=== PATIENT | female | born 1945 | race Caucasian/White ===

== ENCOUNTER 2021-07-02 19:32 | Inpatient (IN) | payer MEDICARE, BC ==
[2021-07-02] MEDS ORDERED: Morphine 4 MG/ML VIAL ONE (20:16)
[2021-07-02] MEDS ORDERED: Ondansetron PF 4 MG/2 ML Vial ONE ×2 (20:16→23:27)
[2021-07-02 20:43] LABS: #Basophils 0.1 10x3/uL (0.0-0.2); #Monocytes 0.6 10x3/uL (0.0-1.1); #Neutrophils 10.9 10x3/uL (1.5-8.4); %Basophils 0.4 % (0.0-2.0); %Eosinophils 0.1 % (0.0-6.0); %Lymphocytes 5.5 % (18.0-47.0); %Monocytes 5.2 % (0.0-10.0); %Neutrophils 88.4 % (40.0-75.0); Hemoglobin 12.2 g/dL (13.5-17.5); Mean Corpuscular HGB CONC 31.8 g/dL (32.0-36.0); Mean Corpuscular Volume 91.4 fl (81.2-95.1); Mean Platelet Volume 9.9 fl (7.4-10.4); Platelet Count 378 10x3/uL (150-450); RBC Distribution Width 14.3 % (11.5-14.5); White Blood Cell (WBC) Count 12.3 10x3/uL (3.5-10.5)
[2021-07-02 21:01] LABS: ALT (SGPT) 15 U/L (8-55); AST (SGOT) 45 U/L (5-34); Albumin 4.5 g/dL (3.4-4.8); Alkaline Phosphatase 129 U/L (40-110); Anion Gap 19 mmol/L (10-20); BUN (Urea Nitrogen) 37 mg/dL (8.4-25.7); Bilirubin, Total 0.4 mg/dL (0.2-1.2); CK (CPK) 54 U/L (30-200); Calc. Creatinine Clearance 0 mL/min (70-130); Calcium 9.8 mg/dL (7.8-10.44); Carbon Dioxide 21 mmol/L (23-31); Chloride 104 mmol/L (98-107); Globulin 2.9 g/dL (2.4-3.5); Glucose 170 mg/dL (83-110); Lipase 36 U/L (8-78); Potassium 3.9 mmol/L (3.5-5.1); Protein, Total 7.4 g/dL (5.8-8.1); Sodium 140 mmol/L (136-145)
[2021-07-02 21:23] LABS: Bilirubin Neg (Negative); Blood, Urine 150 (Negative); Clarity Clear (Clear); Glucose, Urine (Dipstick) Normal (Negative); Ketone, Urine Negative (Negative); Leukocyte 100 (Negative); Nitrite Negative (Negative); Protein, Urine (Dipstick) 30 mg/dl (Neg-Trace); Urobilinogen Normal mg/dL (Less than 2); pH, Urine 6.5 (5.0-9.0)
[2021-07-02 21:24] LABS: CKMB 8.1 ng/mL (0-6.6)
[2021-07-02 21:32] LABS: Squamous Epithelial 0-3 HPF (0-3)
[2021-07-02 21:33] LABS: Bacteria/HPF Rare-Few HPF (None Seen)
[2021-07-02] MEDS ORDERED: Labetalol HCl 100 MG/20 ML VIAL ONE (23:14)
[2021-07-03 00:46] LABS: SARS-CoV-2 NAA Rapid Test Not Detected (NotDetected)
[2021-07-03 03:05] VITALS: BMI 18.8
[2021-07-03] MEDS ORDERED: Ondansetron PF 4 MG/2 ML Vial IVP PRN (04:05)
[2021-07-03 04:48] LABS: #Monocytes 0.9 10x3/uL (0.0-1.1); #Neutrophils 13.9 10x3/uL (1.5-8.4); %Basophils 0.1 % (0.0-2.0); %Lymphocytes 4.1 % (18.0-47.0); %Monocytes 5.7 % (0.0-10.0); %Neutrophils 89.7 % (40.0-75.0); Hemoglobin 12.3 g/dL (13.5-17.5); Mean Corpuscular HGB CONC 32.3 g/dL (32.0-36.0); Mean Corpuscular Hemoglobin 29.2 pg (27.0-33.0); Mean Corpuscular Volume 90.5 fl (81.2-95.1); Platelet Count 299 10x3/uL (150-450); RBC Distribution Width 14.6 % (11.5-14.5); Red Blood Cell (RBC) Count 4.21 10x6/uL (4.32-5.72); White Blood Cell (WBC) Count 15.5 10x3/uL (3.5-10.5)
[2021-07-03] MEDS: Sodium Chloride 0.9% 1,000 ML IV SCH ×2 (04:53→14:31)
[2021-07-03 05:12] LABS: Anion Gap 19 mmol/L (10-20); BUN (Urea Nitrogen) 31 mg/dL (8.4-25.7); Calc. Creatinine Clearance 51 mL/min (70-130); Calcium 9.6 mg/dL (7.8-10.44); Carbon Dioxide 20 mmol/L (23-31); Chloride 107 mmol/L (98-107); Glucose 119 mg/dL (83-110); Magnesium 1.6 mg/dL (1.6-2.6); Potassium 4.3 mmol/L (3.5-5.1); Sodium 142 mmol/L (136-145)
[2021-07-03 05:17] LABS: Troponin I 0.153 ng/mL (< 0.028)
[2021-07-03] MEDS: Aztreonam 1 GM in Sodium Chloride 0.9% 100 ML IVPB SCH ×3 (05:26→21:05)
[2021-07-03] MEDS: Morphine 4 MG/ML VIAL SLOW IVP PRN ×3 (05:59→21:00)
[2021-07-03] MEDS ORDERED: AZTREONAM IVPB SCH (06:00)
[2021-07-03] MEDS ORDERED: Pantoprazole 40 MG VIAL ONE (09:31)
[2021-07-03] MEDS ORDERED: Ondansetron PF 4 MG/2 ML Vial ONE (09:32)
[2021-07-03 11:15] LABS: CKMB 6.7 ng/mL (0-6.6)
[2021-07-03] MEDS: Hydrocortisone Sod Succ/PF 100 mg/2 ml Vial IVP SCH (12:01)
[2021-07-03] MEDS: Pantoprazole 40 MG VIAL IVP SCH (12:01)
[2021-07-03] MEDS ORDERED: Iopamidol-M 300 61% 15 ML VIAL ONE (12:02)
[2021-07-03] MEDS: Hydroxychloroquine Sulfate 200 MG TAB PO SCH (12:10)
[2021-07-03] MEDS: Gemfibrozil 600 MG TAB PO SCH ×2 (12:13→17:54)
[2021-07-03] MEDS: Enoxaparin Sodium 30 MG/0.3 ML SYRINGE SC SCH (12:13)
[2021-07-03] MEDS: predniSONE 5 MG TAB PO SCH (12:13)
[2021-07-03] MEDS ORDERED: Hyoscyamine Sulfate SL 0.125 mg Tablet PO PRN (17:26)
[2021-07-03 19:52] LABS: CKMB 7.2 ng/mL (0-6.6)
[2021-07-03] MEDS: ALPRAZolam 0.5 MG TAB PO SCH ×2 (21:00→21:07)
[2021-07-04] MEDS: Acetaminophen/Codeine 30-300mg Tablet PO PRN ×3 (00:20→19:31)
[2021-07-04] MEDS: Aztreonam 1 GM in Sodium Chloride 0.9% 100 ML IVPB SCH ×3 (06:01→21:03)
[2021-07-04] MEDS: Sodium Chloride 0.9% 1,000 ML IV SCH ×2 (06:02→17:53)
[2021-07-04] MEDS: Gemfibrozil 600 MG TAB PO SCH ×2 (06:53→17:52)
[2021-07-04] MEDS: predniSONE 5 MG TAB PO SCH (09:30)
[2021-07-04] MEDS: Tamsulosin HCl 0.4 MG CAP PO SCH (09:30)
[2021-07-04] MEDS: Hydroxychloroquine Sulfate 200 MG TAB PO SCH (09:30)
[2021-07-04] MEDS: Hydrocortisone Sod Succ/PF 100 mg/2 ml Vial IVP SCH ×2 (09:32→09:51)
[2021-07-04] MEDS: Pantoprazole 40 MG VIAL IVP SCH (09:33)
[2021-07-04] MEDS: Enoxaparin Sodium 30 MG/0.3 ML SYRINGE SC SCH ×2 (09:33→09:42)
[2021-07-04 10:21] LABS: #Basophils 0.1 10x3/uL (0.0-0.2); #Monocytes 0.6 10x3/uL (0.0-1.1); #Neutrophils 8.9 10x3/uL (1.5-8.4); %Basophils 0.5 % (0.0-2.0); %Eosinophils 0.1 % (0.0-6.0); %Lymphocytes 5.9 % (18.0-47.0); %Monocytes 5.5 % (0.0-10.0); %Neutrophils 87.7 % (40.0-75.0); Mean Corpuscular Hemoglobin 29.4 pg (27.0-33.0); Mean Platelet Volume 10.2 fl (7.4-10.4); Platelet Count 208 10x3/uL (150-450); White Blood Cell (WBC) Count 10.2 10x3/uL (3.5-10.5)
[2021-07-04 10:31] LABS: Anion Gap 13 mmol/L (10-20); BUN (Urea Nitrogen) 17 mg/dL (9.8-20.1); Calc. Creatinine Clearance 52 mL/min (70-130); Calcium 7.8 mg/dL (7.8-10.44); Carbon Dioxide 18 mmol/L (23-31); Chloride 112 mmol/L (98-107); Glucose 164 mg/dL (83-110); Potassium 3.5 mmol/L (3.5-5.1); Sodium 139 mmol/L (136-145)
[2021-07-04] MEDS: ALPRAZolam 0.5 MG TAB PO SCH (21:38)
[2021-07-05] MEDS: Acetaminophen/Codeine 30-300mg Tablet PO PRN (03:04)
[2021-07-05] MEDS: Sodium Chloride 0.9% 1,000 ML IV SCH ×2 (03:33→10:40)
[2021-07-05] MEDS: Aztreonam 1 GM in Sodium Chloride 0.9% 100 ML IVPB SCH ×2 (05:51→15:17)
[2021-07-05] MEDS: Gemfibrozil 600 MG TAB PO SCH (05:53)
[2021-07-05 06:25] LABS: Anion Gap 11 mmol/L (10-20); BUN (Urea Nitrogen) 14 mg/dL (9.8-20.1); Calc. Creatinine Clearance 65 mL/min (70-130); Calcium 8.1 mg/dL (7.8-10.44); Carbon Dioxide 17 mmol/L (23-31); Chloride 118 mmol/L (98-107); Glucose 92 mg/dL (83-110); Sodium 142 mmol/L (136-145)
[2021-07-05 06:42] LABS: #Eosinphils 0.1 10x3/uL (0.0-0.5); #Monocytes 0.6 10x3/uL (0.0-1.1); #Neutrophils 5.6 10x3/uL (1.5-8.4); %Basophils 0.3 % (0.0-2.0); %Eosinophils 1.6 % (0.0-6.0); %Lymphocytes 9.7 % (18.0-47.0); %Monocytes 8.1 % (0.0-10.0); %Neutrophils 79.9 % (40.0-75.0); Hemoglobin 8.9 g/dL (12.0-15.5); Mean Corpuscular HGB CONC 31.1 g/dL (32.0-36.0); Mean Corpuscular Hemoglobin 29.6 pg (27.0-33.0); Mean Platelet Volume 10.9 fl (7.4-10.4); Platelet Count 161 10x3/uL (150-450); RBC Distribution Width 14.9 % (11.5-14.5); Red Blood Cell (RBC) Count 3.01 10x6/uL (3.90-5.03)
[2021-07-05 06:46] LABS: Platelet Morphology Comment PLT clumps seen-ADEQ; RBC Morphology Normal
[2021-07-05] MEDS ORDERED: Acetaminophen 325 MG TAB PO PRN (08:05)
[2021-07-05] MEDS: Hydroxychloroquine Sulfate 200 MG TAB PO SCH (10:14)
[2021-07-05] MEDS: predniSONE 5 MG TAB PO SCH (10:14)
[2021-07-05] MEDS: Hydrocortisone Sod Succ/PF 100 mg/2 ml Vial IVP SCH (10:15)
[2021-07-05] MEDS: Pantoprazole 40 MG VIAL IVP SCH (10:15)
[2021-07-05] MEDS: Tamsulosin HCl 0.4 MG CAP PO SCH (10:15)
[2021-07-05] MEDS: Enoxaparin Sodium 30 MG/0.3 ML SYRINGE SC SCH (10:16)
[2021-07-05] MEDS: Morphine 4 MG/ML VIAL SLOW IVP PRN (10:24)
[2021-07-05 12:25] VITALS: BP 108/51; TEMP 98.1
== END 2021-07-05 13:50 | disposition home or self-care (01) | DRG 854 ==
LOC: CSHERS 19:32 → INTOOBSV 07-03 02:59 → EDSEX 07-03 02:59 → CSHTELE 07-03 02:59 → OBSVTOIN 07-03 08:55
PROVIDERS: ADMIT Family Medicine; ATTEND Internal Medicine
PROC: 0T778DZ Dilation of Left Ureter with Intraluminal Device, Via Natural or Artificial Opening Endoscopic (ICD-10-PCS; principal; 2021-07-03)
PROC: BT1F1ZZ Fluoroscopy of Left Kidney, Ureter and Bladder using Low Osmolar Contrast (ICD-10-PCS; 2021-07-03)
DX: A41.50 Gram-negative sepsis, unspecified (principal); N13.6 Pyonephrosis; D84.821 Immunodeficiency due to drugs; M06.9 Rheumatoid arthritis, unspecified; M19.90 Unspecified osteoarthritis, unspecified site; I16.0 Hypertensive urgency; K27.9 Peptic ulcer, site unspecified, unspecified as acute or chronic, without hemorrhage or perforation; F41.9 Anxiety disorder, unspecified; Z20.822 Contact with and (suspected) exposure to COVID-19; R77.8 Other specified abnormalities of plasma proteins; Z88.1 Allergy status to other antibiotic agents; Z79.899 Other long term (current) drug therapy; Z98.890 Other specified postprocedural states
CPT/HCPCS: 36415; 36416; 51600; 51701; 74177; 74430; 76000; 80048; 80053; 81003; 81015; 82550; 82553; 83605; 83690; 83735; 84484; 85025; 86140; 87086; 93005; 93010; 96374; 96375; 96376; C2625; C9113; G0378; J1650; J1720; J2270; J2405; J3490; J7050; J7512; Q9967; U0002

== ENCOUNTER 2021-08-21 15:22 | Observation (INO) | payer MEDICARE, BC ==
[2021-08-21 17:03] LABS: Bilirubin Neg (Negative); Blood, Urine Negative (Negative); Clarity Clear (Clear); Glucose, Urine (Dipstick) Normal (Negative); Ketone, Urine Negative (Negative); Leukocyte Negative (Negative); Nitrite Negative (Negative); Protein, Urine (Dipstick) 15 mg/dl (Neg-Trace); Specific Gravity, Urine 1.005 (1.002-1.036); Urobilinogen Normal mg/dL (Less than 2)
[2021-08-21 17:10] LABS: Amphetamine Not Detected (NotDetected); Barbiturates Screen Not Detected (NotDetected); Benzodiazepine Screen Detected (NotDetected); Cocaine Metabolite Screen Not Detected (NotDetected); Methadone Not Detected (NotDetected); Methamphetamine Not Detected (NotDetected); Opiate Screen Not Detected (NotDetected); Oxycodone Screen Not Detected (NotDetected); Phencyclidine (PCP) Not Detected (NotDetected); THC/Cannabinoid Screen Not Detected (NotDetected); Tricyclic Screen Detected (NotDetected)
[2021-08-21 17:30] LABS: SARS-CoV-2 NAA Rapid Test Not Detected (NotDetected)
[2021-08-21] MEDS ORDERED: Acetaminophen/Codeine 30-300mg Tablet ONE (18:11)
[2021-08-21 18:21] LABS: #Monocytes 0.4 10x3/uL (0.0-1.1); #Neutrophils 7.5 10x3/uL (1.5-8.4); %Basophils 0.2 % (0.0-2.0); %Eosinophils 0.1 % (0.0-6.0); %Lymphocytes 11.8 % (18.0-47.0); %Neutrophils 82.9 % (40.0-75.0); Hemoglobin 9.2 g/dL (12.0-15.5); Mean Corpuscular HGB CONC 31.2 g/dL (32.0-36.0); Mean Corpuscular Hemoglobin 29.2 pg (27.0-33.0); Mean Corpuscular Volume 93.7 fl (81.6-98.3); Mean Platelet Volume 9.4 fl (7.4-10.4); Platelet Count 667 10x3/uL (150-450); RBC Distribution Width 17.6 % (11.5-14.5); Red Blood Cell (RBC) Count 3.15 10x6/uL (3.90-5.03); White Blood Cell (WBC) Count 9.1 10x3/uL (3.5-10.5)
[2021-08-21 18:34] LABS: Alcohol Less than 10 mg/dL (Less than 10); CK (CPK) 26 U/L (29-168); Salicylate Less than 8.0 mg/dL (15.0-30.0)
[2021-08-21 18:35] LABS: ALT (SGPT) 25 U/L (8-55); AST (SGOT) 76 U/L (5-34); Albumin 3.3 g/dL (3.4-4.8); Alkaline Phosphatase 155 U/L (40-110); Anion Gap 18 mmol/L (10-20); BUN (Urea Nitrogen) 27 mg/dL (9.8-20.1); Bilirubin, Total 0.5 mg/dL (0.2-1.2); Calc. Creatinine Clearance 0 mL/min (70-130); Calcium 10.1 mg/dL (7.8-10.44); Carbon Dioxide 18 mmol/L (23-31); Chloride 109 mmol/L (98-107); Globulin 3.4 g/dL (2.4-3.5); Glucose 95 mg/dL (83-110); Magnesium 1.8 mg/dL (1.6-2.6); Potassium 3.8 mmol/L (3.5-5.1); Protein, Total 6.7 g/dL (5.8-8.1); Sodium 141 mmol/L (136-145)
[2021-08-21] MEDS ORDERED: Acetaminophen 325 MG TAB PO PRN (21:31)
[2021-08-21] MEDS ORDERED: ALPRAZolam 0.5 MG TAB PO PRN (21:35)
[2021-08-21 22:08] VITALS: BMI 16.9
[2021-08-21 22:37] LABS: Magnesium 1.8 mg/dL (1.6-2.6)
[2021-08-21] MEDS: Sodium Chloride 0.9% 1,000 ML IV SCH (23:10)
[2021-08-22] MEDS: HYDROcodone/Acetaminophen 5/325 mg Tablet PO PRN ×2 (01:02→10:13)
[2021-08-22 04:36] LABS: Anion Gap 16 mmol/L (10-20); BUN (Urea Nitrogen) 22 mg/dL (9.8-20.1); Calc. Creatinine Clearance 41 mL/min (70-130); Carbon Dioxide 17 mmol/L (23-31); Chloride 110 mmol/L (98-107); Glucose 84 mg/dL (83-110); Sodium 139 mmol/L (136-145)
[2021-08-22 05:01] LABS: #Eosinphils 0.1 10x3/uL (0.0-0.5); #Monocytes 0.3 10x3/uL (0.0-1.1); #Neutrophils 5.8 10x3/uL (1.5-8.4); %Basophils 0.4 % (0.0-2.0); %Eosinophils 0.8 % (0.0-6.0); %Lymphocytes 17.8 % (18.0-47.0); %Monocytes 4.4 % (0.0-10.0); %Neutrophils 75.4 % (40.0-75.0); Hemoglobin 8.9 g/dL (12.0-15.5); Mean Corpuscular HGB CONC 33.2 g/dL (32.0-36.0); Mean Corpuscular Hemoglobin 29.9 pg (27.0-33.0); Mean Corpuscular Volume 89.9 fl (81.6-98.3); Mean Platelet Volume 9.9 fl (7.4-10.4); Platelet Count 554 10x3/uL (150-450); RBC Distribution Width 17.7 % (11.5-14.5); Red Blood Cell (RBC) Count 2.98 10x6/uL (3.90-5.03); White Blood Cell (WBC) Count 7.7 10x3/uL (3.5-10.5)
[2021-08-22] MEDS ORDERED: predniSONE 5 MG TAB PO SCH (09:00)
[2021-08-22] MEDS ORDERED: Hydroxychloroquine Sulfate 200 MG TAB PO SCH (09:00)
[2021-08-22] MEDS ORDERED: Polyethylene Glycol 3350 17 GM Packet PO SCH (09:00)
[2021-08-22] MEDS ORDERED: Aspirin Chewable 81 MG TAB PO SCH (09:00)
[2021-08-22] MEDS ORDERED: Multivit, Therapeutic 1 TAB PO SCH (09:00)
[2021-08-22] MEDS ORDERED: Enoxaparin Sodium 30 MG/0.3 ML SYRINGE SC SCH (09:00)
[2021-08-22] MEDS ORDERED: Calcium Carbonate 600 MG + Vit D TAB PO SCH (09:00)
[2021-08-22 13:18] VITALS: TEMP 97.9
[2021-08-22] MEDS: Sodium Chloride 0.9% 1,000 ML IV SCH (16:09)
[2021-08-22 16:17] VITALS: BP 122/60
== END 2021-08-22 16:25 | disposition home or self-care (01) ==
LOC: CSHERS 15:22 → CSHTELE 21:33
PROVIDERS: ADMIT Family Medicine; ATTEND Internal Medicine
DX: R53.2 Functional quadriplegia (principal); S32.000A Wedge compression fracture of unspecified lumbar vertebra, initial encounter for closed fracture; R62.7 Adult failure to thrive; M06.9 Rheumatoid arthritis, unspecified; Z79.899 Other long term (current) drug therapy; Z79.82 Long term (current) use of aspirin; D63.8 Anemia in other chronic diseases classified elsewhere; Z20.822 Contact with and (suspected) exposure to COVID-19
CPT/HCPCS: 51701; 70450; 70496; 70498; 71045; 80048; 80306; 80307; 81003; 82533; 82550; 82962; 83735; 84439; 85025; 85652; 93005; 93306; 93880; 97139 ×2; 97530; 99285; G0378 ×2; U0002; 36415; 36416; 80053; 84443; J7050; J7512